=== PATIENT | male | born 1975 | race Caucasian/White ===

== ENCOUNTER 2021-07-27 10:42 | Emergency (ER) | payer BC, SELFPAY ==
[2021-07-27 10:51] VITALS: BP 165/91; PULSE 71; RESP 16; TEMP 36.4; O2SAT 98
[2021-07-27 10:54] VITALS: BP 165/91; PULSE 71; RESP 16; TEMP 36.4; O2SAT 98
--- NOTE | 2021-07-27 10:55 | ED.DIZZY ---
HPI - Dizziness General Chief Complaint: Dizziness Stated Complaint: dizzy/head pressure/cold sore Time Seen by Provider: 07/27/21 11:00 Source: patient, family, RN notes reviewed and old records reviewed Mode of arrival: ambulatory Limitations: no limitations History of Present Illness HPI Narrative: 46 year old male presents to [facility] care with complaints of feeling dizzy,lightheaded, with some visual disturbances and headache to back and top of head yesterday with some ringing in his ears. Patient states that he has no feelings of dizziness or lightheadedness today or any visual disturbances today but has mild headache discomfort to the back of his head. Patient states that he also awoke today with a cold sore on his right upper lip.Patient denies any known fevers, chills. or sweats. denies any nausea or vomiting, states one episode of diarrhea yesterday. Patient has steady gait, able to walk on toes and heels and tandem walk without difficulty, cranial nerves II-XII intact on assessment, hand diamond grinder strong bilaterally with no drift. Orthostatic blood pressure supine 133/86,sitting 129/85, standing 133/84. MD elicited complaint: dizziness, lightheadedness and other (visual changes yesterday) Related Data Allergies Allergy/AdvReac Type Severity Reaction Status Date / Time No Known Allergies Allergy Verified 07/27/21 10:53 Review of Systems Review of Systems: CONSTITUTIONAL: Denies fever, chills, or sweats. EYES: reports intermittent visual blurring yesterday none today,no redness, or discharge. ENT: Denies rhinorrhea, congestion, sore throat, or otalgia. CARDIOVASCULAR: Denies chest pain, palpitations, or edema. RESPIRATORY: Denies cough or dyspnea. GASTROINTESTINAL: Denies abdominal pain, nausea, vomiting, reports one episode of diarrhea yesterday GENITOURINARY: Denies dysuria or hematuria. SKIN: Denies rash or itching.cold sore to right upper lip of which he awoke with this morning. MUSCULOSKELETAL: Denies back pain, joint pain, or myalgia. NEUROLOGIC: Positive for headache, denies any numbness, or weakness. PSYCHIATRIC: Denies anxiety or depression, reports some stress related to mothers 2 months ago and some issues at home. All systems reviewed & are unremarkable except as noted in HPI and below PMFSH Past Medical History Medical History No pertinent past medical history Surgical History Surgical History No history of previous surgery Family History Family History Father Family history of cardiovascular disease Other Hypertension Social History Social History (Updated 07/27/21 @ 11:22 by Marya Martinez NP) Smoking status: Never smoker Second hand tobacco smoke exposure: No Alcohol intake: current Living arrangements: with family Gender identity (if verbalized by the patient): Male Comments At time of signature, agree with nursing past medical, surgical, social and family history. There is no relevant family history pertinent to the presenting complaint Exam Narrative: GENERAL: Well-appearing, well-nourished, and in no acute distress. HEAD: Normocephalic, atraumatic. EYES: PERRLA and EOMI. ENT: Nares clear, no rhinorrhea or epistaxis. Mucous membranes moist.TM's normal with good light reflex, throat pink with no exudates or lesions, tonsils not enlarged NECK: Supple. no lymphadenopathy CHEST: Clear to auscultation. No respiratory distress.SAO2 98% on room air, denies any cough or any feelings of congestion HEART: Regular rate and rhythm. No murmur heard. Normal peripheral pulses . ABDOMEN: Soft, nontender, nondistended, normal active bowel sounds. EXTREMITIES: Normal range of motion. No edema. SKIN: Warm, dry, no rash.cold sore to right upper lip NEURO: No focal deficits. Alert and oriented x3. some mild headache discomfort to back of
[2021-07-27 11:18] VITALS: BP 133/86; PULSE 57
[2021-07-27 11:19] VITALS: BP 129/85; BP 133/84; PULSE 62; PULSE 65
== END 2021-07-27 11:53 | disposition home or self-care (01) ==
PROVIDERS: Emergency Provider Registered Nurse; PCP Family Medicine
DX: R42 Dizziness and giddiness (principal); B00.1 Herpesviral vesicular dermatitis
CPT/HCPCS: 87804; 99213; G0463

== ENCOUNTER → 2021-10-09 01:03 | Outpatient (CLI) | payer BC, SELFPAY ==
[2021-10-09 21:03] LABS: SARS-CoV-2 RNA PCR Negative
== END ==
PROVIDERS: PCP Family Medicine; Visit Provider Family Medicine
DX: R68.89 Other general symptoms and signs (principal); Z20.822 Contact with and (suspected) exposure to COVID-19
CPT/HCPCS: C9803; U0003; U0005

== ENCOUNTER 2023-01-24 08:45 | Emergency (ER) | payer BC, SELFPAY ==
[2023-01-24] VITALS (24 sets, daily range): BP systolic 123–151; BP diastolic 84–97; PULSE 69–94; RESP 9–23; TEMP 36.6; O2SAT 94–100
--- NOTE | ~2023-01-24 | CT_ITS ---
EXAMINATION: CTA chest DATE: 01/24/2023 10:38 INDICATION: Chest pain TECHNIQUE: Computed tomographic angiography (CTA) of the chest was performed with 100 mL Omnipque-350 intravenous contrast. Maximum intensity projection 3D-reconstructions of the aorta and other arterie s were constructed by the technologist on a separate workstation. The dose-length product (DLP) was 7 33.40 mGy-cm. Automated exposure control and iterative reconstruction technique were employed. COMPARISON: None. FINDINGS: No aneurysm or dissection of the thoracic aorta. No significant arterial atherosclerosis or stenosis are identified. There is mild dependent atelectasis of the lungs. No pleural effusion or pn eumothorax. There are no focal airspace opacities. No pathologically enlarged thoracic lymph nodes ar e identified. The heart size is normal. IMPRESSION: 1. No aneurysm or dissection of the thoracic aorta. Reviewed, dictated and finalized at location B.
--- NOTE | ~2023-01-24 | XR_ITS ---
EXAMINATION: XR chest 2V DATE: 01/24/2023 09:48 INDICATION: Chest pain TECHNIQUE: PA and lateral views of the chest are obtained. COMPARISON: None available FINDINGS: The lungs are free of acute opacities. No pleural effusion or pneumothorax. The cardiomedia stinal silhouette is normal. There is mild thoracic spondylosis. IMPRESSION: 1. No acute cardiopulmonary abnormality. Reviewed, dictated and finalized at location B.
--- NOTE | 2023-01-24 08:46 | ECG_ITS ---
Measurements Intervals [place] Rate: 75 P: 46 NE: 177 QRS: 7 QRSD: 102 T: 29 QT: 366 QTc: 410 Interpretive Statements SINUS RHYTHM NO PREVIOUS ECG AVAILABLE FOR COMPARISON Electronically Signed On 01-24-2023 11:04:10 CDT by Александр Guadalupe M.D.
[2023-01-24 09:18] LABS: Basophils Percent Auto 0.3 % (0.2-1.2); Eosinophils Absolute Auto 0.1 K/mm3 (0-0.3); Eosinophils Percent Auto 1.4 % (0-4.4); Hemoglobin 15.3 g/dL (14.0-18.0); Immature Granulocyte Absolute 0.03 K/mm3 (0.00-0.031); Immature Granulocyte Percent A 0.3 % (0-0.5); Lymphocytes Absolute Auto 2.22 K/mm3 (0.9-3.2); Lymphocytes Percent Auto 25.4 % (18.3-44.2); Mean Corpuscular HGB Conc 34.8 g/dl (32-36); Mean Corpuscular Hemoglobin 30.6 pg (26-34); Monocytes Absolute Auto 0.6 K/mm3 (0.1-0.6); Neutrophils Absolute Auto 5.7 K/mm3 (1.3-6.7); Neutrophils Percent Auto 65.6 % (45.5-73.1); Platelet Count Result 287 k/mm3 (150-375); Red Cell Distribution Width 12.7 % (11.5-14.5); White Blood Count 8.7 K/mm3 (4.5-10.0)
[2023-01-24 09:27] LABS: Prothrombin Time 13.1 Seconds (11.1-14.7)
[2023-01-24 09:28] LABS: Alanine Aminotransferase 59 U/L (6-50); Albumin Level 4.8 g/dL (3.5-5.1); Alkaline Phosphatase 73 U/L (38-126); Anion Gap 8 mmol/L (8-16); Aspartate Amino Transferase 45 U/L (17-59); Bilirubin,Total 0.6 mg/dL (0.2-1.3); Blood Urea Nitrogen 12 mg/dL (9-20); Carbon Dioxide 30 mmol/L (22-30); Chloride 101 mmol/L (98-107); Estimated CRCL calculation 106 ml/min; Estimated Glomerular Filt Rate > 60; Glucose 85 mg/dL (65-110); Lipase 79 U/L (23-300); Partial Thromboplastin Time 28.7 SECONDS (22.3-36.8); Potassium 3.9 mmol/L (3.4-5.0); Sodium 139 mmol/L (137-145)
[2023-01-24 09:40] LABS: Troponin I < 0.012 ng/mL (0.000-0.034)
--- NOTE | 2023-01-24 09:45 | ED.CHESTPAIN ---
HPI - Chest Pain General Chief Complaint: Chest Pain <EMILY Cleaning Last Filed: 01/24/23 18:03> Stated Complaint: chest, back pain <EMILY Cleaning Last Filed: 01/24/23 18:03> Time Seen by Provider: 01/24/23 09:32 <Olesya Pedraza PA-C - Last Filed: 01/24/23 18:03> History of Present Illness HPI narrative: 47-year-old male with history of hypertension reports for evaluation of chest pain and back pain that started 3 days ago. Patient describes the pain as a muscle sore in his chest and back that occurs with movement of his torso, deep inspiration, and flexion and abduction of his shoulders. The pain does not radiate to his arms, neck or jaw. He denies recent injury or trauma, the last time he exercised was 7 days ago. He is also reporting an intermittent pulsatile headache in his L hindu. States this is not the worst headache of his life and was slow in in onset. Denies dyspnea, history of VTE, focal numbness or weakness, syncope, vision changes, heartburn, dysphagia, odynophagia, abdominal pain, hemoptysis, n/v/d. <EMILY Cleaning Last Filed: 01/24/23 18:03> Related Data Home Medications: Home Medications Medication Instructions Recorded Confirmed cetirizine 10 mg tablet (Zyrtec) 10 mg PO DAILY PRN 08/13/21 09/19/22 <EMILY Cleaning Last Filed: 01/24/23 18:03> Allergies/Adverse Reactions: Allergies Allergy/AdvReac Type Severity Reaction Status Date / Time No Known Allergies Allergy Verified 01/06/23 16:12 <EMILY Cleaning Last Filed: 01/24/23 18:03> Review of Systems Review of Systems: CONSTITUTIONAL: Denies fever, chills EYES: Denies visual changes, redness, or discharge. ENT: Denies rhinorrhea, congestion, sore throat, or otalgia. CARDIOVASCULAR: See HPI RESPIRATORY: Denies cough or dyspnea. GASTROINTESTINAL: Denies abdominal pain, nausea, vomiting, or diarrhea. GENITOURINARY: Denies dysuria or hematuria. SKIN: Denies rash or itching. MUSCULOSKELETAL: See HPI NEUROLOGIC: Denies headache, numbness, dizziness, or weakness. PSYCHIATRIC: Denies anxiety or depression. <Olesya Pedraza PA-C - Last Filed: 01/24/23 18:03> [facility] Past Medical History Medical History: Medical History Essential (primary) hypertension Recurrent herpes labialis Seasonal allergies <Olesya Pedraza PA-C - Last Filed: 01/24/23 18:03> Surgical History Surgical History: Surgical History No history of previous surgery <Olesya Pedraza PA-C - Last Filed: 01/24/23 18:03> Family History Family History: Family History Father Family history of cardiovascular disease Other Hypertension <Olesya Pedraza PA-C - Last Filed: 01/24/23 18:03> Social History Social History: Social History Smoking status: Never smoker Second hand tobacco smoke exposure: No Alcohol intake: current Alcohol use details: beer/wine 3-4 times a week Substance use type: does not use Lack of Transportation: No Lack of Food: Never True Current Housing: I Have Housing Concerned About Future Housing: No Difficulty Paying Gas/Electric Bills: No Difficulty Paying for Meds: No Currently Unemployed: No Education: Master's Degree or Higher Difficulty w/ Childcare or Family Care: No Living arrangements: with family Gender identity (if verbalized by the patient): Male <Olesya Pedraza PA-C - Last Filed: 01/24/23 18:03> Exam Narrative: GENERAL: Well-appearing, well-nourished, and in no acute distress. Patient resting comfortably in exam bed. He is pleasant and conversational. HEAD: Normocephalic, atraumatic. EYES: PERRLA and EOMI. ENT: Nares clear, no rhinorrhea or epistaxis. M
[2023-01-24] MEDS: CYCLOBENZAPRINE HCL 10 MG TABLET PO (09:57)
[2023-01-24] MEDS: ACETAMINOPHEN 500 MG TABLET 1000 MG PO (09:57)
[2023-01-24] MEDS: PROCHLORPERAZINE EDISYLATE 10 MG/2 ML VIAL IM (11:03)
[2023-01-24] MEDS: diphenhydrAMINE HCl INJ 50 MG/ML VIAL 25 MG IV PUSH (11:04)
[2023-01-24 12:20] LABS: Troponin I < 0.012 ng/mL (0.000-0.034)
== END 2023-01-24 13:29 | disposition home or self-care (01) ==
PROVIDERS: Emergency Medicine; Emergency Provider Physician Assistant; PCP Family Medicine
DX: R07.89 Other chest pain (principal); M54.6 Pain in thoracic spine; I10 Essential (primary) hypertension
CPT/HCPCS: 36415; 71046; 71275; 80053; 83690; 84484; 85025; 85610; 85730; 93005; 96372; 96374; 99284; A9270; J0780; J1200; Q9967

== ENCOUNTER 2023-11-08 08:02 | Emergency (ER) | payer BC, SELFPAY ==
--- NOTE | 2023-11-08 08:15 | ED.EYEPROB ---
HPI - Eye Problem General Chief complaint: Eye Problems Stated complaint: EYE REDNESS Time Seen by Provider: 11/08/23 08:15 Source: patient Mode of arrival: ambulatory Limitations: no limitations History of Present Illness HPI Narrative: 48-year-old male presents with complaint of redness to left eye with itching, burning starting yesterday. Patient reports that he had a ?stomach virus ?and had been laying in bed for several days with vomiting and diarrhea. Patient thinks he somehow infected his eye from laying in bed and not showering due to not feeling well. GI symptoms resolved. No vision changes. Patient does wear contacts. All systems reviewed and negative except as noted above. Related Data Home Medications Medication Instructions Recorded Confirmed cetirizine 10 mg tablet (Zyrtec) 10 mg PO DAILY PRN 08/13/21 10/08/23 Allergies Allergy/AdvReac Type Severity Reaction Status Date / Time No Known Allergies Allergy Verified 10/08/23 08:29 Review of Systems Review of Systems: CONSTITUTIONAL: Denies fever, chills, or sweats. EYES: Denies visual changes. Reports left eye redness, itching, discharge. ENT: Denies rhinorrhea, congestion, sore throat, or otalgia. CARDIOVASCULAR: Denies chest pain, palpitations, or edema. RESPIRATORY: Denies cough or dyspnea. GASTROINTESTINAL: Denies abdominal pain, nausea, vomiting, or diarrhea. GENITOURINARY: Denies dysuria or hematuria. SKIN: Denies rash or itching. MUSCULOSKELETAL: Denies back pain, joint pain, or myalgia. NEUROLOGIC: Denies headache, numbness, or weakness. PSYCHIATRIC: Denies anxiety or depression. All other systems reviewed are negative, except as documented in HPI. [facility] Past Medical History Medical History (Updated 11/08/23 @ 08:18 by Sandra Cao NP) Essential (primary) hypertension Postprandial diarrhea Recurrent herpes labialis Seasonal allergies Surgical History Surgical History No history of previous surgery Family History Family History Father Family history of cardiovascular disease Other Hypertension Social History Social History Smoking status: Never smoker Second hand tobacco smoke exposure: No Alcohol intake: current Alcohol use details: beer/wine 3-4 times a week Substance use type: does not use Lack of Transportation: No Lack of Food: Never True Current Housing: I Have Housing Concerned About Future Housing: No Difficulty Paying Gas/Electric Bills: No Difficulty Paying for Meds: No Currently Unemployed: No Education: Master's Degree or Higher Difficulty w/ Childcare or Family Care: No Living arrangements: with family Gender identity (if verbalized by the patient): Male Comments At time of signature, agree with nursing past medical, surgical, social and family history. There is no relevant family history pertinent to the presenting complaint. Exam Narrative: GENERAL: This is a well-nourished, well-developed patient, in no apparent distress. HEAD: normocephalic, atraumatic. EYES: PERRL. Sclera and conjunctiva right eye normal. Left eye conjunctiva and sclera erythematous with mild soft tissue swelling. Purulence drainage noted to left eye. Vision is grossly intact. EARS: External ears normal NOSE: External nose normal NECK: Neck supple, non-tender without lymphadenopathy, masses or thyromegaly. CARDIOVASCULAR: Regular rate and rhythm without murmurs, gallops, or rubs. RESPIRATORY: Clear to auscultation. Breath sounds equal bilaterally. No wheezes, rales, or rhonchi. SKIN: warm, Dry, intact with no suspicious lesions or rash, good texture and turgor. NEURO: awake, alert, and oriented to person, place and time. There were no obvious focal neurologic abnormalities. EXTREMITIES: No joint tenderness, effus
[2023-11-08 08:16] VITALS: BP 123/90; PULSE 70; RESP 18; TEMP 36.9; O2SAT 99
== END 2023-11-08 08:25 | disposition home or self-care (01) ==
PROVIDERS: Emergency Provider Nurse Practitioner Family; PCP Family Medicine
DX: H10.32 Unspecified acute conjunctivitis, left eye (principal); I10 Essential (primary) hypertension
CPT/HCPCS: 99213; G0463

== ENCOUNTER 2024-06-09 08:18 | Emergency (ER) | payer BC, SELFPAY ==
--- NOTE | 2024-06-09 08:20 | ED.GENADULT ---
HPI - General Adult General Chief complaint: Eye Problems Stated complaint: eye Time Seen by Provider: 06/09/24 08:20 Source: patient, RN notes reviewed and old records reviewed Mode of arrival: ambulatory Limitations: no limitations History of Present Illness HPI narrative: 49-year-old male to [facility] for complaint of left eye irritation for approximately 1 week with increasing redness, itching and irritation over the past 2 days. Patient reports that this morning upon wakening he had increased drainage from eye and dried drainage present. Patient denies pain, visual changes, recent illness, foreign body sensation, injury, prior injury, allergies, pertinent medical history. Patient reports that he is currently wearing contacts. Patient teaching regarding contact wear during course of treatment. Patient verbalized understanding. Patient resting in exam room in no acute distress. Related Data Home Medications Medication Instructions Recorded Confirmed cetirizine 10 mg tablet (Zyrtec) 10 mg PO DAILY PRN Allergic 08/13/21 06/09/24 Symptoms Allergies Allergy/AdvReac Type Severity Reaction Status Date / Time No Known Allergies Allergy Verified 06/09/24 08:22 Review of Systems Review of Systems: All systems reviewed & are unremarkable except as noted in HPI and below Constitutional: Constitutional: Reports no additional constitutional complaints Eyes: Eyes: Reports as per HPI, Denies blurry vision, Denies change in vision, Denies diplopia, Reports eye discharge ( left), Reports irritation ( left), Reports itchy eyes ( left) and Reports requires corrective lenses ENT: Reports system reviewed and no additional complaints, except as documented Cardiovascular: Cardiovascular: Reports no additional cardiovascular complaints, Denies chest pain and Denies dyspnea Respiratory: Respiratory: Reports no additional respiratory complaints, Denies cough and Denies dyspnea Musculoskeletal: Musculoskeletal: Reports no additional musculoskeletal complaints Neurologic: Reports system reviewed and no additional complaints, except as documented Psychiatric: Psychiatric: Reports no additional psychiatric complaints PMFSH Past Medical History Medical History Essential (primary) hypertension Postprandial diarrhea Recurrent herpes labialis Seasonal allergies Surgical History Surgical History No history of previous surgery Family History Family History Father Family history of cardiovascular disease Other Hypertension Social History Social History Smoking status: Never smoker Second hand tobacco smoke exposure: No Alcohol intake: current Alcohol use details: beer/wine 3-4 times a week Substance use type: does not use Lack of Transportation: No Lack of Food: Never True Current Housing: I Have Housing Concerned About Future Housing: No Difficulty Paying Gas/Electric Bills: No Difficulty Paying for Meds: No Currently Unemployed: No Education: Master's Degree or Higher Difficulty w/ Childcare or Family Care: No Living arrangements: with family Gender identity (if verbalized by the patient): Male Comments At the time of my signature, I reviewed and agree with the nursing past medical, surgical, social, and family history. There is no relevant family history pertinent to the patient complaint. Exam Const: General: cooperative, healthy appearing, no acute distress, alert, uncomfortable and well nourished Nutritional Appearance: well nourished Orientation/consciousness: patient oriented x3 Limitations: no limitations HENMT: Head: normal to inspection Ears: external ears normal Face/Nose/Sinus: Normal external nose present, Normal nares present
[2024-06-09 08:26] VITALS: BP 132/95; PULSE 78; RESP 16; TEMP 36.4; O2SAT 100
== END 2024-06-09 08:37 | disposition home or self-care (01) ==
LOC: EXPGOSH 10:24
PROVIDERS: Emergency Provider Nurse Practitioner Family; PCP Family Medicine
DX: H10.89 Other conjunctivitis (principal); I10 Essential (primary) hypertension
CPT/HCPCS: 99213; G0463